=== PATIENT | female | born 1960 | race Caucasian/White ===

== ENCOUNTER 2024-09-20 09:37 | Emergency (ER) | payer MEDICARE ==
[~2024-09-20] VITALS: Ht 172.7 cm; Wt 74.9 kg
[2024-09-20 11:02] VITALS: BP 152/90; PULSE 71; RESP 18; TEMP 97.8; O2SAT 100
--- NOTE | 2024-09-20 11:15 | ED.PDOC ---
Ana Laura. trauma (HPI) HPI Comments A 64 YEAR OLD FEMALE PRESENTS TO THE ED WITH CHIEF COMPLAINT OF BACK PAIN S/P FALL. PATIENT REPORTS THAT SHE HAD FALLEN ONTO HER BACK ON TUESDAY, BEING SEEN AT [facility] FOR TREATMENT. PATIENT RELAYS THAT SHE HAD XR'S DONE AND WAS TOLD IT WAS ONLY A MUSCLE INJURY, HOWEVER, SHE WAS CALLED LATER AND TOLD TO HAVE A REPEAT XR PERFORMED DUE TO POSSIBLE T-SPINE WEDGING AT T12. PATIENT STATES SHE ALSO NEEDS TO SEE AN ORTHO FOR HER LEFT 4TH FINGER THERE IS A SPLINT IN PLACE AND HAS NOT BEEN ABLE TO SET UP AN APPOINTMENT WITH ONE. PATIENT DENIES ANY HEADACHE, ABDOMINAL PAIN, HEAD INJURY, NUMBNESS, OR WEAKNESS. NO OTHER SYMPTOMS REPORTED AT THIS TIME OF CARE. Chief Complaint: Fall Injury Time Seen by MD: 11:09 Primary Care Provider: NONE Reviewed notes: Nurses Notes, Medications, Allergies Allergies: Coded Allergies: NO KNOWN ALLERGIES (Unverified , 09/20/24) Information Source: Patient Mode of Arrival: Ambulatory Severity: Moderate Timing: Days Duration: Since onset Prehospital treatment: None Location: Back Mechanism: Fall Associated signs and symtoms: None Past Medical History PAST MEDICAL HISTORY: Denies Surgical History: Denies all surgeries PACKING [employer]ED SUPERVISOR History: No Pertinent P[employer]ING [employer] SUPERVISOR History Family History Family History: Reviewed,noncontributory to illness Social History Smoker: Non-Smoker Alcohol: Denies ETOH Use Drugs: Denies Drug Use Lives In: Home Constitutional: denies: chills, diaphoresis, fatigue, fever, malaise, sweats, weakness, others EENTM: denies: blurred vision, double vision, ear bleeding, ear discharge, ear drainage, ear pain, ear ringing, eye pain, eye redness, hearing loss, mouth pain, mouth swelling, nasal discharge, nose bleeding, nose congestion, nose pain, photophobia, tearing, throat pain, throat swelling, voice changes, others Respiratory: denies: cough, hemoptysis, orthopnea, SOB at rest, shortness of breath, SOB with excertion, stridor, wheezing, others Cardiovascular: denies: chest pain, dizzy spells, diaphoresis, Dyspnea on exertion, edema, irregular heart beat, left arm pain, lightheadedness, palpitations, PND, syncope, others Gastrointestinal: denies: abdomen distended, abdominal pain, blood streaked bowels, constipated, diarrhea, dysphagia, difficulty swallowing, hematemesis, melena, nausea, poor appetite, poor fluid intake, rectal bleeding, rectal pain, vomiting, others Genitourinary: denies: abnormal vagina bleeding, burning, dyspareunia, dysuria, flank pain, frequency, hematuria, incontinence, pain, , vagina discharge, urgency, others Neurological: denies: dizziness, fainting, headache, left sided numbness, left sided weakness, numbness, paresthesia, pre-existing deficit, right sided numbness, right sided weakness, seizure, speech problems, tingling, tremors, weakness, others Musculoskeletal: reports: joint pain, joint swelling, muscle pain, others (LOWER BACK PAIN); denies: back pain, gout, muscle stiffness, neck pain Integumetry: denies: bruises, change in color, change in hair/nails, dryness, laceration, lesions, lumps, rash, wounds, others Allergic/Immunocompromised: denies: Difficulty Healing, Frequent Infections, Hives, Itching, others Hematologic/Lymphatic: denies: anemia, blood clots, easy bleeding, easy bruising, swollen glands, others Endocrine: denies: excessive hunger, excessive sweating, excessive thirst, excessive urination, flushing, intolerance to cold, intolerance to heat, unexplained weight gain, unexplained weight loss, others Psychiatric: denies: anxiety, bipolar disorder, depression, hopeless, panic disorder, schizophrenia, sleepless, suicidal, others All Other Systems: Reviewed and Negative Physical Exam General Appearance: No Apparent Distress, Normal HEENT: Normal ENT Inspection, PERRL/EOMI Neck: Full Range of Motion, Non-Tender, Normal, Normal Inspection Respiratory: Chest Non-Tender, Lungs Clear, No Accessory Muscle Use, No Respiratory Distress, Normal Breath Sounds Cardiovascular: No Edema, No JVD, No Murmur, No Gallop, Normal Peripheral Pulses, Regular Rate/Rhythm Breast Exam: Deferred Gastrointestinal: No Organomegaly, Non Tender, No Pulsatile Mass, Normal Bowel Sounds, Soft Genitalia: Deferred Pelvic: Deferred Rectal: Deferred Extremities: No calf tenderness, Normal capillary refill, Normal range of motion, No pedal edema, Tender (BONY TENDERNESS AND SWELLING ON LEFT 4TH FINGER, NO DEFORMITY AND OPEN WOUND. ) Musculoskeletal : Location: Bilateral Extremity Location: Back Apperance: Tenderness (AND MUSCLE SPASM ON MIDDLE AND LOW BACK, NO BONY TENDERNESS, SWELLING AND DEFORMITY. ) Neurologic: Alert, infection control practitioner II-XII nml as Tested, No Motor Deficits, Normal Affect, Normal Mood, No Sensory Deficits Cerebellar Function: Normal Reflexes: Normal Skin: Dry, Normal Color, Warm Peripheral Pulses: 2+ carotid (R), 2+ carotid (L) Lymphatic: No Adenopathy Was a procedure done? Was a procedure done?: No Differential Diagnosis Multiple Trauma: Fractures, Spine Injury, Abrasions, Contusion X-Ray, Labs, Meds, VS Vital Signs Date Time Temp Pulse Resp B/P (MAP) Pulse Ox O2 Delivery O2 Flow Rate FiO2 09/20/24 11:02 97.8 71 18 152/90 (110) 100 97.8 09/20/24 11:02 71 18 100 Room Air 09/20/24 09:46 97.8 71 18 152/90 (110) 100 PATIENT: JOSE VALENTINE MACCT: [id number]: [id number] : 1960 LOC: ER ROOM / BED: / AGE / SEX: 64 / F ADM STATUS: REG ER SERVICE 1105 ORDERING PHYSICIAN: PAN REILLY PROCEDURE(s): LUMB2 - LUMBAR SPINE 3 VIEW REASON: FALL ORDER NUMBER(s): [id number], ACCESSION NUMBER(s): [id number] INDICATION: FALL, trauma, pain TECHNIQUE: 4 views of the thoracic and lumbar spine were obtained. COMPARISON: None Findings/ IMPRESSION: Vascular atherosclerotic calcifications of the aorta. Moderate volume colonic stool. Diffuse osteopenia. No acute subluxation. Age indeterminate [id number] compression fracture of the superior endplate of the L3 vertebral body. ATED BY: CHARLY DEWEY MD DICTATED DATE/TIME: 09/20/241135 SIGNED BY: CHARLY DEWEY MD SIGNED DATE/TIME: 09/20/241135PATIENT: JOSE VALENTINE MACCT: [id number]: [id number] : 1960 LOC: ER ROOM / BED: / AGE / SEX: 64 / F ADM STATUS: REG ER SERVICE ORDERING PHYSICIAN: PAN REILLY PROCEDURE(s): LHAN - L HAND 3V XRAY REASON: FALL ORDER NUMBER(s): [id number], ACCESSION NUMBER(s): [id number] CLINICAL INDICATION: trauma TECHNIQUE: 3 radiographic views of the left hand were obtained. Comparison: None FINDINGS/IMPRESSION: There is a displaced fracture of the 4th proximal phalanx. ATED BY: NICHOLAS FERNANDES MD DICTATED DATE/TIME: 09/20/241155 SIGNED BY: NICHOLAS FERNANDES MD SIGNED DATE/TIME: 09/20/241155 CC: X-Ray, Labs, Meds, VS Comment EXTERNAL MEDICAL RECORDS REVIEWED: [NONE] INDEPENDENT HISTORIANS: [NONE] SOCIAL DETERMINANTS OF HEALTH: [NONE] LABS ORDERED: NONE REVIEWED AND INTERPRETED RESULTS: T-SPINE, L-SPINE, AND LEFT HAND XR IMAGING ORDERED: T-SPINE, L-SPINE, AND LEFT HAND XR TREATMENTS ORDERED: NONE PROCEDURES PERFORMED: NONE CRITICAL CARE TIME: NONE I HAVE DISCUSSED THE PATIENT WITH THE ATTENDING PHYSICIAN DR. KENT AND HE AGREES WITH THE PATIENT'S PLAN OF CARE AND DISPOSITION. BASED ON HISTORY OF PRESENT ILLNESS, AND PHYSICAL EXAM, PATIENT WILL BE DISCHARGED HOME. DISCUSSED PLAN FOR DISCHARGE HOME WITH RX. MEDICATION WARNINGS GIVEN. SHARED DECISION MAKING: DISCUSSED WITH PATIENT THAT THEIR WORKUP WAS NORMAL. PATIENT INSTRUCTED TO FOLLOW UP WITH PRIMARY CARE PROVIDER IN 1-2 DAYS FOR RE- EVALUATION OF SYMPTOMS. PATIENT VERBALIZES UNDERSTANDING TO RETURN TO ED FOR NEW OR WORSENING SYMPTOMS OR IF FOLLOW UP WITH PCP CANNOT BE OBTAINED. PATIENT FEELS COMFORTABLE GOING HOME AT THIS TIME. ALL QUESTIONS ADDRESSED AT TIME OF DISCHARGE. Time of 1ST Reevaluation: 12:20 Reevaluation 1ST: Improved Patient Education/Counseling: Diagnosis, Treatment, Need For Follow Up Family Education/Counseling: Treatment, Need For Follow Up Medical Screening: No EMC Exist At This Time Departure 1 Departure Time of Disposition: 12:30 Impression: Primary Impression: Fracture of proximal phalanx of left hand Qualified Codes: S62.619A - Displaced fracture of proximal phalanx of unspecified finger, initial encounter for closed fracture Additional Impressions: Strain of back Qualified Codes: S39.012D - Strain of muscle, fascia and tendon of lower back, subsequent encounter Chronic vertebral fracture due to osteoporosis Disposition: 01 HOME / SELF CARE / HOMELESS Condition: Stable Additional Instructions: FOLLOW-UP WITH PCP IN 1 TO 2 DAYS. TAKE MEDICATIONS PRESCRIBED. RETURN TO ED FOR ANY NEW OR WORSENING SYMPTOMS. Written Prescriptions PT HAS PAIN MEDICATION AT HOME. Discharged With: Self, Relative Critical Care Note Critical Care Time?: No Stability Stability form required: No Heart Score Heart Score: Heart Score Response (Comments) Value History N/A 0 EKG N/A 0 Age N/A 0 Risk Factors N/A 0 Troponin N/A 0 Total 0 I personally scribed for APN REILLY ([email or web address]) on 09/20/24 at 11:14. Electronically submitted by Abel Saavedra ([email or web address]). PAN REILLY Sep 20, 2024 11:14
--- NOTE | 2024-09-20 11:38 | DVH ---
INDICATION: FALL, trauma, pain TECHNIQUE: 4 views of the thoracic and lumbar spine were obtained. COMPARISON: None Findings/ IMPRESSION: Vascular atherosclerotic calcifications of the aorta. Moderate volume colonic stool. Diffuse osteopenia. No acute subluxation. Age indeterminate [id number] compression fracture of the superior endplate of the L3 vertebral body.
--- NOTE | 2024-09-20 11:38 | DVH ---
INDICATION: FALL, trauma, pain TECHNIQUE: 4 views of the thoracic and lumbar spine were obtained. COMPARISON: None Findings/ IMPRESSION: Vascular atherosclerotic calcifications of the aorta. Moderate volume colonic stool. Diffuse osteopenia. No acute subluxation. Age indeterminate [id number] compression fracture of the superior endplate of the L3 vertebral body.
--- NOTE | 2024-09-20 11:57 | DVH ---
CLINICAL INDICATION: trauma TECHNIQUE: 3 radiographic views of the left hand were obtained. Comparison: None FINDINGS/IMPRESSION: There is a displaced fracture of the 4th proximal phalanx.
== END 2024-09-20 12:22 | disposition home or self-care (01) ==
LOC: ER 09:37
DX: S62.615A Displaced fracture of proximal phalanx of left ring finger, initial encounter for closed fracture (principal); S39.012A Strain of muscle, fascia and tendon of lower back, initial encounter; M80.88XA Other osteoporosis with current pathological fracture, vertebra(e), initial encounter for fracture; W18.39XA Other fall on same level, initial encounter; Y93.89 Activity, other specified; Y92.89 Other specified places as the place of occurrence of the external cause; Y99.8 Other external cause status
CPT/HCPCS: 72070; 72100; 73130